=== PATIENT | female | born 1960 | race Caucasian/White ===

== ENCOUNTER 2018-05-11 08:16 | Emergency (ER) | payer MEDICAID ==
[~2018-05-11] VITALS: Ht 160 cm; Wt 92.7 kg
[~2018-05-11 08:16] MED LIST: ERGO500017 PO; FLUO20CA19 PO; LEVO100C2 PO
[2018-05-11] MEDS ORDERED: OXYcodone/APAP 5/325MG TABLET PO ONE (09:30)
[2018-05-11] MEDS ORDERED: OXYcodone/APAP 5/325MG TABLET ONE (09:32)
[2018-05-11 10:10] VITALS: BP 117/65
== END 2018-05-11 10:52 | disposition home or self-care (01) ==
LOC: ED 09:36
DX: H92.02 Otalgia, left ear (principal); R42 Dizziness and giddiness; E03.9 Hypothyroidism, unspecified
CPT/HCPCS: 70450; 99284

== ENCOUNTER 2018-05-12 07:46 | Emergency (ER) | payer MEDICAID ==
[~2018-05-12] VITALS: Ht 160 cm; Wt 93.0 kg
[2018-05-12] MEDS ORDERED: ASPIRIN 81 MG TABLET CHEW PO ONE (09:30)
[2018-05-12] MEDS ORDERED: LORazepam 1MG TABLET PO ONE (09:30)
[2018-05-12] MEDS ORDERED: ASPIRIN 81 MG TABLET CHEW ONE (09:32)
[2018-05-12] MEDS ORDERED: LORazepam 1MG TABLET ONE (09:32)
[2018-05-12 09:46] LABS: BASOPHILS # (AUTO) 0.05 x10^3/uL (0-0.1); BASOPHILS % (AUTO) 1 % (0-1); EOSINOPHILS # (AUTO) 0.02 x10^3/uL (0-0.4); EOSINOPHILS % (AUTO) 0 % (1-7); LYMPHOCYTES # (AUTO) 1.85 x10^3/uL (1-3.4); LYMPHOCYTES % (AUTO) 20 % (22-44); MD NO; MEAN CORPUSCULAR HEMOGLOBIN 28.9 pg (27.0-34.8); MEAN CORPUSCULAR HGB CONC 33.1 g/dL (32.4-35.8); MEAN CORPUSCULAR VOLUME 87.1 fL (80-100); MEAN PLATELET VOLUME 6.9 fL (7.4-10.4); MONOCYTES # (AUTO) 0.68 x10^3/uL (0.2-0.8); MONOCYTES % (AUTO) 8 % (2-9); NEUTROPHILS # (AUTO) 6.53 x10^3/uL (1.8-6.8); NEUTROPHILS % (AUTO) 72 % (42-75); PLATELET COUNT 331 x10^3/uL (130-400); RED BLOOD COUNT 5.19 x10^6/uL (3.82-5.3); RED CELL DISTRIBUTION WIDTH 15.6 % (9.6-15.2)
[2018-05-12 09:57] LABS: ALBUMIN 3.4 g/dL (3.4-5.0); ANION GAP 6 mmol/L (5-15); CALCIUM 8.3 mg/dL (8.5-10.1); CHLORIDE 96 mmol/L (98-107); CREATININE 0.82 mg/dL (0.55-1.02)
[2018-05-12 10:01] LABS: TROPONIN I < 0.015 ng/mL (0.000-0.045)
[2018-05-12 10:38] VITALS: BP 109/61
== END 2018-05-12 11:33 | disposition home or self-care (01) ==
LOC: ED 11:13
DX: R07.89 Other chest pain (principal); F43.0 Acute stress reaction; E03.9 Hypothyroidism, unspecified
CPT/HCPCS: 36415; 71046; 80048; 82040; 84484; 85025; 93005; 99285

== ENCOUNTER 2018-07-08 16:35 | Emergency (ER) | payer MEDICAID ==
[~2018-07-08] VITALS: Ht 167.6 cm; Wt 94.0 kg
[2018-07-08] MEDS ORDERED: IBUPROFEN 200 MG TABLET PO ONE (17:30)
[2018-07-08] MEDS ORDERED: ACETAMINOPHEN 500 MG TABLET PO ONE (17:30)
[2018-07-08] MEDS ORDERED: ACETAMINOPHEN 500 MG TABLET ONE (17:33)
[2018-07-08] MEDS ORDERED: IBUPROFEN 200 MG TABLET ONE (17:33)
[2018-07-08 18:03] VITALS: BP 111/76
== END 2018-07-08 18:05 | disposition home or self-care (01) ==
LOC: ED 17:59
DX: G89.29 Other chronic pain (principal); H92.02 Otalgia, left ear; G50.0 Trigeminal neuralgia; E03.9 Hypothyroidism, unspecified; Z90.89 Acquired absence of other organs; Z90.49 Acquired absence of other specified parts of digestive tract; Z90.710 Acquired absence of both cervix and uterus
CPT/HCPCS: 99283

== ENCOUNTER 2018-11-25 00:14 | Emergency (ER) | payer MEDICAID ==
[~2018-11-25] VITALS: Ht 167.6 cm; Wt 98.2 kg
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
[2018-11-25] MEDS ORDERED: hydrOXyzine 50MG TABLET ONE (01:11)
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
--- NOTE | 2018-11-25 01:39 | NUR ---
PT. 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 STATES "I SCRATCH MY SCALP A LOT, AND SOMETIMES IT STARTS BLEEING AND I NEED YOU DOCUMENTING ALL OF THIS." PT. DENIES ANY SI/HI AND STATES "YOU BETTER BE DOCUMENTING THAT I AM NO SUICIDAL AT ALL, I WOULD NEVER HARM MYSELF BUT I NEED HELP, I NEED A THERAPY SESSION, ALL OF MY THERAPIST JUST BRUSH OFF THE FACT THAT I AM SCRACTHING MY SCALP BECAUSE OF MY ANXIETY AND NO ONE WANTS TO GIVE ME MEDS TO HELP ME STOP". PT. OFFERED EMOTIONAL SUPPORT BY THIS RN; PROVIDED WITH PAPER/PEN PER REQUEST TO WRITE HER THOUGHTS DOWN PT. REPORTS THIS HELPS HER ANXIETY. ALL SAFETY MEASUERS MAINTAINED.
--- NOTE | 2018-11-25 01:59 | NUR ---
PT. PROVIDED WITH A SECOND PIECE OF PAPER PER REQUEST. OLLIE GARDNER WAS IN TO DISCUSS POC WITH PT. PT. DENIES ANY FURTHER NEEDS AT THIS TIME.
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
[2018-11-25 02:28] VITALS: BP 150/108
== END 2018-11-25 02:32 | disposition home or self-care (01) ==
LOC: ED 00:42
DX: F10.120 Alcohol abuse with intoxication, uncomplicated (principal); E03.9 Hypothyroidism, unspecified
CPT/HCPCS: 99283; Q0177

== ENCOUNTER 2018-12-03 13:01 | Emergency (ER) | payer MEDICAID ==
[~2018-12-03] VITALS: Ht 160 cm; Wt 92.9 kg
[2018-12-03 13:18] VITALS: BP 161/88
[2018-12-03] MEDS ORDERED: LORazepam 1MG TABLET ONE (13:53)
--- NOTE | 2018-12-03 13:58 | NUR ---
report received from guanaco Guerra, patient is safe in [facility] at bedside now, patient medicated with PO ativan per JAN.
[2018-12-03] MEDS ORDERED: LORazepam 1MG TABLET PO ONE (14:00)
[2018-12-03 14:02] LABS: BASOPHILS # (AUTO) 0.02 x10^3/uL (0-0.1); BASOPHILS % (AUTO) 0 % (0-1); EOSINOPHILS % (AUTO) 0 % (1-7); LYMPHOCYTES # (AUTO) 0.88 x10^3/uL (1-3.4); LYMPHOCYTES % (AUTO) 14 % (22-44); MD NO; MEAN CORPUSCULAR HEMOGLOBIN 27.4 pg (27.0-34.8); MEAN CORPUSCULAR HGB CONC 32.3 g/dL (32.4-35.8); MEAN CORPUSCULAR VOLUME 84.7 fL (80-100); MEAN PLATELET VOLUME 7.3 fL (7.4-10.4); MONOCYTES # (AUTO) 0.55 x10^3/uL (0.2-0.8); MONOCYTES % (AUTO) 8 % (2-9); NEUTROPHILS # (AUTO) 5.08 x10^3/uL (1.8-6.8); NEUTROPHILS % (AUTO) 78 % (42-75); PLATELET COUNT 312 x10^3/uL (130-400); RED BLOOD COUNT 4.77 x10^6/uL (3.82-5.3); RED CELL DISTRIBUTION WIDTH 16.2 % (9.6-15.2)
[2018-12-03 14:12] LABS: ALBUMIN 3.8 g/dL (3.4-5.0); ANION GAP 7 mmol/L (5-15); CHLORIDE 99 mmol/L (98-107); CREATININE 0.88 mg/dL (0.55-1.02); SALICYLATE LEVEL 2.2 mg/dL (2.8-20.0)
[2018-12-03 14:13] LABS: ACETAMINOPHEN < 2 mcg/mL (10-30)
== END 2018-12-03 15:29 | disposition home or self-care (01) ==
LOC: ED 14:54
DX: F41.1 Generalized anxiety disorder (principal); E03.9 Hypothyroidism, unspecified; Z90.710 Acquired absence of both cervix and uterus; Z90.89 Acquired absence of other organs; Z90.49 Acquired absence of other specified parts of digestive tract
CPT/HCPCS: 36415; 80048; 80307; 80329; 82040; 85025; 93005; 99284; G0480

== ENCOUNTER 2018-12-03 21:54 | Emergency (ER) | payer MEDICAID ==
[~2018-12-03] VITALS: Ht 160 cm; Wt 95.0 kg
[2018-12-03 22:15] VITALS: BP 130/88
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
== END 2018-12-04 01:06 | disposition home or self-care (01) ==
LOC: ED 22:22
DX: F41.1 Generalized anxiety disorder (principal); E03.9 Hypothyroidism, unspecified
CPT/HCPCS: 99284

== ENCOUNTER 2019-04-11 13:08 | Emergency (ER) | payer SELFPAY ==
[~2019-04-11] VITALS: Ht 162.6 cm; Wt 83.3 kg
[2019-04-11 13:18] VITALS: BP 111/74
[2019-04-11] MEDS ORDERED: BENZONATATE 100 MG CAPSULE ONE (13:58)
[2019-04-11] MEDS ORDERED: ALBUTEROL/IPRATROPIUM 2.5MG/0.5MG, 3 ML NPPB ONE (14:00)
[2019-04-11] MEDS ORDERED: BENZONATATE 100 MG CAPSULE PO ONE (14:00)
[2019-04-11] MEDS ORDERED: ALBUTEROL/IPRATROPIUM 2.5MG/0.5MG, 3 ML ONE (14:03)
--- NOTE | 2019-04-11 14:05 | NUR ---
rt at bedside
--- NOTE | 2019-04-11 14:26 | NUR ---
DUONEB TREATMENT GIVEN
[2019-04-11] MEDS ORDERED: ALBUTEROL SULFATE 2.5 MG/3 ML NPPB PRN (15:00)
== END 2019-04-11 14:34 | disposition home or self-care (01) ==
LOC: ED 14:31
DX: J20.8 Acute bronchitis due to other specified organisms (principal); J00 Acute nasopharyngitis [common cold]; B34.9 Viral infection, unspecified; E03.9 Hypothyroidism, unspecified; Z87.891 Personal history of nicotine dependence
CPT/HCPCS: 71046; 93005; 94640; 99283; J7620

== ENCOUNTER 2020-07-24 11:23 | Emergency (ER) | payer MEDICAID ==
[~2020-07-24] VITALS: Ht 160 cm; Wt 74.2 kg
[2020-07-24] MEDS ORDERED: FENTANYL PF 100 MCG/2ML ONE ×2 (11:50→13:12)
[2020-07-24] MEDS ORDERED: ONDANSETRON 2MG/ML, 2ML ONE (11:50)
[2020-07-24] MEDS ORDERED: FENTANYL PF 100 MCG/2ML IVPush ONE (12:00)
[2020-07-24] MEDS ORDERED: SODIUM CHLORIDE 0.9% 1,000ML IVBOLUS ONE (12:00)
[2020-07-24] MEDS ORDERED: SODIUM CHLORIDE FLUSH 10ML SYR IVF ONE (12:00)
[2020-07-24] MEDS ORDERED: ONDANSETRON 2MG/ML, 2ML IVPush ONE (12:00)
[2020-07-24 12:18] LABS: BASOPHILS # (AUTO) 0.01 x10^3/uL (0-0.1); BASOPHILS % (AUTO) 0 % (0-1); EOSINOPHILS # (AUTO) 0.03 x10^3/uL (0-0.4); EOSINOPHILS % (AUTO) 1 % (1-7); LYMPHOCYTES # (AUTO) 1.35 x10^3/uL (1-3.4); LYMPHOCYTES % (AUTO) 23 % (22-44); MD NO; MEAN CORPUSCULAR HEMOGLOBIN 26.8 pg (27.0-34.8); MEAN CORPUSCULAR VOLUME 83.7 fL (80-100); MEAN PLATELET VOLUME 7.3 fL (7.4-10.4); MONOCYTES # (AUTO) 0.57 x10^3/uL (0.2-0.8); MONOCYTES % (AUTO) 10 % (2-9); NEUTROPHILS # (AUTO) 3.83 x10^3/uL (1.8-6.8); NEUTROPHILS % (AUTO) 66 % (42-75); PLATELET COUNT 280 x10^3/uL (130-400); RED BLOOD COUNT 4.38 x10^6/uL (3.82-5.3); RED CELL DISTRIBUTION WIDTH 17.1 % (9.6-15.2)
--- NOTE | 2020-07-24 12:18 | NUR ---
PT CAME IN CO OF RLQ PAIN THAT STARTED YESTERDAY MORNING AT ABOUT 0500. IT WOKE HER FROM HER SLEEP. PT STATES IT WORSE WHEN SHE MOVES AROUND OR PUSHES ON IT. PT SAYS "I THOUGHT I HAD MY APPENDIX OUT BUT I AM NOT SURE". PT IS RESTING IN GURNEY. BLANKET PROVIDED. IV FLUIDS INFUSING. PT REPORTS PAIN IMPROVEMENT AFTER MEDICATION.
[2020-07-24 12:29] LABS: ALANINE AMINOTRANSFERASE 21 U/L (12-78); ALBUMIN 3.6 g/dL (3.4-5.0); ANION GAP 5 mmol/L (5-15); CALCIUM 8.9 mg/dL (8.5-10.1); CHLORIDE 104 mmol/L (98-107)
[2020-07-24 12:31] LABS: ALKALINE PHOSPHATASE 74 U/L (45-117); BILIRUBIN,TOTAL 0.4 mg/dL (0.2-1.0)
[2020-07-24 12:53] LABS: MICROSCOPIC NOT IND
[2020-07-24 13:03] VITALS: BP 103/66
--- NOTE | 2020-07-24 13:15 | NUR ---
CALLED CT. PT IS NEXT FOR SCAN
[2020-07-24] MEDS ORDERED: FENTANYL PF 100 MCG/2ML IVPush PRN (13:30)
[2020-07-24] MEDS ORDERED: OMNIPAQUE 350 MG/ML, 100ML BOTTLE ONE (13:37)
== END 2020-07-24 15:26 | disposition home or self-care (01) ==
LOC: ED 12:23
DX: R10.31 Right lower quadrant pain (principal)
CPT/HCPCS: 36415; 74177; 80053; 81003; 85025; 96361; 96374; 96375; 96376; 99285; J2405; J3010; J7030; Q9967

== ENCOUNTER 2020-08-05 22:35 | Observation (INO) | payer MEDICAID ==
[~2020-08-05] VITALS: Ht 160 cm; Wt 75.3 kg
[2020-08-05] MEDS ORDERED: FENTANYL PF 100 MCG/2ML IVPush ONE (23:45)
[2020-08-05 23:56] LABS: MICROSCOPIC NOT IND
[2020-08-06] MEDS ORDERED: SODIUM CHLORIDE FLUSH 10ML SYR IVF ONE
[2020-08-06] MEDS ORDERED: ONDANSETRON 2MG/ML, 2ML IVPush ONE
[2020-08-06 00:03] LABS: MEAN CORPUSCULAR HEMOGLOBIN 27.1 pg (27.0-34.8); MEAN CORPUSCULAR HGB CONC 32.5 g/dL (32.4-35.8); MEAN PLATELET VOLUME 6.9 fL (7.4-10.4); PLATELET COUNT 281 x10^3/uL (130-400); RED BLOOD COUNT 3.99 x10^6/uL (3.82-5.3); RED CELL DISTRIBUTION WIDTH 17.2 % (9.6-15.2)
[2020-08-06] MEDS ORDERED: FENTANYL PF 100 MCG/2ML ONE ×3 (00:12→04:49)
[2020-08-06] MEDS ORDERED: ONDANSETRON 2MG/ML, 2ML ONE (00:13)
[2020-08-06 00:16] LABS: ALANINE AMINOTRANSFERASE 22 U/L (12-78); ALBUMIN 3.3 g/dL (3.4-5.0); ANION GAP 8 mmol/L (5-15); CALCIUM 8.4 mg/dL (8.5-10.1); CHLORIDE 100 mmol/L (98-107)
[2020-08-06 00:17] LABS: BASOPHILS # (AUTO) 0.02 x10^3/uL (0-0.1); BASOPHILS % (AUTO) 1 % (0-1); EOSINOPHILS # (AUTO) 0.06 x10^3/uL (0-0.4); EOSINOPHILS % (AUTO) 1 % (1-7); LYMPHOCYTES # (AUTO) 1.93 x10^3/uL (1-3.4); LYMPHOCYTES % (AUTO) 36 % (22-44); MD SCAN; MONOCYTES # (AUTO) 0.56 x10^3/uL (0.2-0.8); MONOCYTES % (AUTO) 10 % (2-9); NEUTROPHILS # (AUTO) 2.83 x10^3/uL (1.8-6.8); NEUTROPHILS % (AUTO) 52 % (42-75)
[2020-08-06 00:18] LABS: ALKALINE PHOSPHATASE 78 U/L (45-117); BILIRUBIN,TOTAL 0.2 mg/dL (0.2-1.0); TOTAL PROTEIN 6.8 g/dL (6.4-8.2)
--- NOTE | 2020-08-06 00:20 | NUR ---
PT PLACED ON 1L O2 NC DUE TO PT LOW O2 SATS AFTER PAIN MEDICATION AND A COUPLE MIN OF COACHING PT TO TAKE MORE BREATHS. PT O2 WENT FROM MID 80'S UP TO MID 90'S AFTER
[2020-08-06] MEDS ORDERED: HYDROCORTISONE 100 MG INJ. ONE (02:02)
[2020-08-06] MEDS ORDERED: DICYCLOMINE 10 MG/ML, 2ML ONE (02:05)
[2020-08-06] MEDS ORDERED: DILTIAZEM 5 MG/ML, 5ML ONE (02:13)
--- NOTE | 2020-08-06 02:14 | NUR ---
Break RN: Assist RN and this RN medicated patient per mar.
[2020-08-06] MEDS ORDERED: DICYCLOMINE 10 MG/ML, 2ML IM ONE (02:30)
[2020-08-06] MEDS ORDERED: FENTANYL PF 100 MCG/2ML IV ONE ×2 (02:30→05:00)
[2020-08-06] MEDS ORDERED: SODIUM CHLORIDE 0.9% 1,000 ML IV SCH (04:38)
[2020-08-06] MEDS ORDERED: DOCUSATE 100 MG CAPSULE PO PRN (05:00)
[2020-08-06] MEDS ORDERED: ACETAMINOPHEN 325 MG TABLET PO PRN (05:00)
[2020-08-06] MEDS ORDERED: MAALOX/HYOSCYAMINE/LIDOCAINE 45 ML BTL PO ONE (05:30)
[2020-08-06 05:41] LABS: % IRON SATURATION 3 % (20-55); IRON LEVEL 14 mcg/dL (50-170); TOTAL IRON BINDING CAPACITY 516 mcg/dL (250-450)
[2020-08-06] MEDS ORDERED: MAALOX/HYOSCYAMINE/LIDOCAINE 45 ML BTL ONE (05:42)
[2020-08-06 06:13] VITALS: BP 107/66
[2020-08-06] MEDS ORDERED: LEVOTHYROXINE 100 MCG TABLET PO SCH (08:29)
[2020-08-06] MEDS ORDERED: IRON SUCROSE COMPLEX 100MG/5ML IV SCH (09:00)
[2020-08-06] MEDS ORDERED: FLUOXETINE HCL 20 MG CAPSULE PO SCH (09:00)
[2020-08-06] MEDS ORDERED: TRAM50TA2 PO (10:43)
[2020-08-06] MEDS ORDERED: FERR325T18 PO (10:43)
[2020-08-06 13:14] VITALS: BP 104/69
[2020-08-07] MEDS ORDERED: LEVOTHYROXINE 100 MCG TABLET PO SCH (06:00)
== END 2020-08-06 14:40 | disposition home or self-care (01) ==
LOC: ED 08-06 03:13 → INTOOBSV 08-06 05:04 → EDIP 08-06 05:04 → 3N 08-06 06:02 → DCLOUNGE 08-06 14:40
PROVIDERS: ADMIT Family Medicine; ATTEND Family Medicine
DX: K52.9 Noninfective gastroenteritis and colitis, unspecified (principal); D64.9 Anemia, unspecified; E87.1 Hypo-osmolality and hyponatremia; E03.9 Hypothyroidism, unspecified; G47.00 Insomnia, unspecified; F41.9 Anxiety disorder, unspecified; D50.9 Iron deficiency anemia, unspecified; K63.5 Polyp of colon; Z79.899 Other long term (current) drug therapy
CPT/HCPCS: 36415; 74177; 80053; 81003; 82607; 83540; 83550; 83690; 85025; 96361; 96372; 96374; 96375; 96376; 99285; G0378; J0500; J1756; J2405; J3010; J7030

== ENCOUNTER 2020-08-11 10:03 | Emergency (ER) | payer MEDICAID ==
[~2020-08-11] VITALS: Ht 160 cm; Wt 71.6 kg
[~2020-08-11 10:03] MED LIST changes: +FERR325T18 PO; +TRAM50TA2 PO
[2020-08-11 11:07] LABS: BASOPHILS % (AUTO) 1 % (0-1); EOSINOPHILS % (AUTO) 1 % (1-7); LYMPHOCYTES % (AUTO) 26 % (22-44); MEAN CORPUSCULAR HEMOGLOBIN 27.1 pg (27.0-34.8); MEAN CORPUSCULAR HGB CONC 31.9 g/dL (32.4-35.8); MEAN PLATELET VOLUME 7.1 fL (7.4-10.4); MONOCYTES % (AUTO) 13 % (2-9); NEUTROPHILS % (AUTO) 60 % (42-75); PLATELET COUNT 318 x10^3/uL (130-400); RED BLOOD COUNT 4.63 x10^6/uL (3.82-5.3); RED CELL DISTRIBUTION WIDTH 16.9 % (9.6-15.2)
[2020-08-11 11:09] LABS: MD NO
[2020-08-11 11:11] LABS: ALBUMIN 3.7 g/dL (3.4-5.0); ANION GAP 5 mmol/L (5-15); CALCIUM 9.3 mg/dL (8.5-10.1); CHLORIDE 105 mmol/L (98-107)
[2020-08-11 11:16] LABS: ALANINE AMINOTRANSFERASE 22 U/L (12-78); ALKALINE PHOSPHATASE 91 U/L (45-117); BILIRUBIN,TOTAL 0.7 mg/dL (0.2-1.0); CREATININE 0.79 mg/dL (0.55-1.02); TOTAL PROTEIN 7.5 g/dL (6.4-8.2)
[2020-08-11 12:23] LABS: MICROSCOPIC INDICATED
--- NOTE | 2020-08-11 12:38 | NUR ---
MOBILE EQUIPMENT OPERATOR: PT TO ROOM FROM [facility]OST[facility].
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
[2020-08-11] MEDS ORDERED: PINK LADY ENEMA 490 ML BOTTLE PR ONE (13:30)
--- NOTE | 2020-08-11 14:56 | NUR ---
PT HAD 1 LARGE BOWEL MOVEMENT. PT STATES HER UPPER QUADRANT PAIN HAS SUBSIDED BUT PAIN IN LOWER ABDOMEN IS STILL PRESENT. ERP DR. VILLELA NOTIFIED.
[2020-08-11 15:05] VITALS: BP 122/71
--- NOTE | 2020-08-11 15:06 | NUR ---
TASK RN: Patient/Caregiver given discharge instructions and they have confirmed that they understand the instructions. Patient ambulatory with steady gait.
[2020-08-11] MEDS ORDERED: OXYcodone/APAP 5/325MG TABLET PO ONE (15:30)
== END 2020-08-11 15:06 | disposition home or self-care (01) ==
LOC: ED 12:32
DX: R10.31 Right lower quadrant pain (principal); K59.00 Constipation, unspecified; E03.9 Hypothyroidism, unspecified; Z90.49 Acquired absence of other specified parts of digestive tract; Z90.710 Acquired absence of both cervix and uterus
CPT/HCPCS: 36415; 74021; 80053; 81001; 83690; 85025; 87086; 99284